=== PATIENT | female | born 1995 | race African-American/Black ===

== ENCOUNTER 2017-01-02 15:22 | Emergency (ER) | payer MEDICAID ==
[~2017-01-02] VITALS: Ht 165.1 cm; Wt 66.0 kg
[2017-01-02] MEDS ORDERED: ONDANSETRON 4MG ODT PO ONE (18:30)
[2017-01-02] MEDS ORDERED: ACETAMINOPHEN 500MG TABLET PO ONE (18:30)
[2017-01-02 19:12] VITALS: BP 116/71
== END 2017-01-02 19:31 | disposition home or self-care (01) ==
LOC: ER 19:11
DX: J40 Bronchitis, not specified as acute or chronic (principal); J45.909 Unspecified asthma, uncomplicated; F12.10 Cannabis abuse, uncomplicated; Z88.0 Allergy status to penicillin
CPT/HCPCS: 71020; 81025; 99284; Q0162

== ENCOUNTER 2022-08-16 18:57 | Emergency (ER) | payer MEDICAID, OTHER ==
[~2022-08-16] VITALS: Ht 172.7 cm; Wt 93.0 kg
[2022-08-16 19:02] VITALS: BP 147/96
== END 2022-08-16 21:00 | disposition left against medical advice (07) ==
LOC: ER 18:57
DX: Z53.21 Procedure and treatment not carried out due to patient leaving prior to being seen by health care provider (principal)